=== PATIENT | female | born 1955 | race Caucasian/White ===

== ENCOUNTER 2020-08-04 07:47 | Emergency (ER) | payer BC ==
[2020-08-04] MEDS ORDERED: OXYCODONE-ACETAMINOPHEN 10-325 PO STA (08:06)
[2020-08-04] MEDS ORDERED: OXYCODONE-ACETAMINOPHEN 10-325 ONE (08:08)
--- NOTE | 2020-08-04 08:10 | ERPHSYRPT ---
- History of Present Illness Time Seen by Provider: 08/04/20 07:56 Source: patient Exam Limitations: no limitations Patient Subjective Stated Complaint: shingles to forehead and right eye Triage Nursing Assessment: Pt was brought to the ER by her , right eye swollen shut, small blisters on forehead and eye lid, hypertensive, rates pain 7/10, went to [facility] yesterday and was given Acyclovir, denies having any other place on her Physician History: 65 years old female with history of right retinal surgery in the past presented in the ER with gradual onset right forehead vesiculopapular rash 3 days ago with progressive worsening and involving right upper lid with swelling/vesicles causing difficulty opening since yesterday. Denies any difficulty in vision but what she has at her baseline. She also noticed reddening of right eye conjunctiva. Pain is moderate to severe intensity sharp burning in nature, aggravated with touching and movement of 5 eyelid and no significant relieving factors. She was evaluated by primary care and is on antiviral but her pain is not improving. She tried to get hold of her retinal surgeon Dr. Ro but could not. Denies fever or chills. No difficulty hearing or rash anywhere else. Timing/Duration: day(s) (3), gradual onset, worse Location: right eye Severity: moderate Apparent Injury: no Associated Symptoms: pain, burning, sensitivity to light, redness, eyelid swelling Chemical Exposure: No Allergies/Adverse Reactions: No Known Drug Allergies Allergy (Verified 08/04/20 08:06) Home Medications: Levothyroxine Sodium [Synthroid] 125 mcg PO DAILY 04/25/18 [History] Rosuvastatin Calcium [Crestor] 20 mg PO DAILY 04/25/18 [History] Hx Influenza Vaccination/Date Given: Yes Travel Risk - International Travel Have you traveled outside of the country in past 3 weeks: No - Coronavirus Screening Are you exhibiting any of the following symptoms?: No Close contact with a COVID-19 positive Pt in past 14-21 Days: No - Review of Systems Constitutional: No Symptoms Eyes: Eye Pain, Eye Redness, Itchy, Photophobia, Tearing Ears, Nose, & Throat: No Symptoms, Ear Pain Respiratory: No Symptoms Cardiac: No Symptoms Abdominal/Gastrointestinal: No Symptoms Genitourinary Symptoms: No Symptoms Musculoskeletal: No Symptoms Skin: Rash Neurological: Headache Psychological: No Symptoms Endocrine: No Symptoms Hematologic/Lymphatic: No Symptoms - Past Medical History Pertinent Past Medical History: Yes Neurological History: No Pertinent History ENT History: Cataracts, Other Cardiac History: No Pertinent History Respiratory History: No Pertinent History Endocrine Medical History: Thyroid Cancer Musculoskeletal History: No Pertinent History GI Medical History: No Pertinent History History: No Pertinent History Psycho-Social History: No Pertinent History Female Reproductive Disorders: No Pertinent History Other Medical History: retina detaching, shingles - Past Surgical History Past Surgical History: Yes Neuro Surgical History: No Pertinent History Cardiac: No Pertinent History Respiratory: No Pertinent History Gastrointestinal: No Pertinent History Genitourinary: No Pertinent History Musculoskeletal: No Pertinent History Female Surgical History: Section Other Surgical History: thyroid surgery/radiation tx - Social History Smoking Status: Never smoker Exposure to second hand smoke: No Drug Use: none Patient Lives Alone: No - Female History Hx Now: No - Nursing Vital Signs Nursing Vital Signs: Initial Vital Signs Temperature 98.3 F 08/04/20 07:50 Pulse Rate 83 08/04/20 07:50 Blood Pressure 145/82 08/04/20 07:50 O2 Sat by Pulse Oximetry 98 08/04/20 07:50 Pain Scale Pain Intensity 7 - Physical Exam General Appearance: no apparent distress, alert Vision Acuity Right Eye: 20/70 Vision Acuity Left Eye: 20/50 Eye Exam: right eye: conjunctival hemorrhage, conjunctival inflammation, eyelid inflammation (Diffuse erythema upper lid with vesicular rash.), other (Diffuse erythema right forehead with vesiculopapular rash. Very tender to touch. Difficulty opening right eye because of upper lid swelling. Conjunctival injection), left eye: normal inspection, bilateral eye: PERRL, EOMI Ears, Nose, Throat Exam: normal ENT inspection Neck Exam: normal inspection, non-tender, supple, full range of motion Respiratory Exam: normal breath sounds, lungs clear Cardiovascular Exam: regular rate/rhythm, normal heart sounds Gastrointestinal Exam: soft Neurologic: alert, oriented x 3, cooperative, box stacker II-XII nml as tested, normal mood/affect Skin Exam: normal color SpO2 Interpretation: normal SpO2: 98 O2 Delivery: Room Air Ordered Tests: Active Orders 24 hr Category Date Time Status Visual Acuity STAT Care 08/04/20 08:14 Completed Medication Summary Discontinued Medications Generic Name Dose Route Start Last Admin Trade Name Freq PRN Reason Stop Dose Admin Morphine Sulfate 4 mg 08/04/20 09:28 12 09:38 Morphine Sulfate 4 Mg Inj IM 08/04/20 09:29 4 mg STAT ONE Administration Morphine Sulfate Confirm 08/04/20 09:37 Morphine Sulfate 4 Mg Inj Administered 08/04/20 09:38 Dose 4 mg .ROUTE .STK-MED ONE Oxycodone/Acetaminophen 1 tab 08/04/20 08:06 08/04/20 08:08 Oxycodone-Acetaminophen 10-325 PO 08/04/20 08:07 1 tab STAT STA Administration Oxycodone/Acetaminophen Confirm 08/04/20 08:08 Oxycodone-Acetaminophen 10-325 Administered 08/04/20 08:09 Dose 1 tab .ROUTE .STK-MED ONE - Progress Progress Note: 08/04/20 09:28 64 years old with shingles involving right upper lid with no obvious new visual disturbance per patient. Patient is already on antiviral. She is given pain medications in here, on reevaluation feeling better. I have discussed with ophthalmology Dr. Solomon at [facility], recommended continue with oral antiviral, pain medication, artificial tears, patch and outpatient follow-up with Dr. Ro. Plan discussed with patient understand and agrees with it. Discussed signs symptoms of worsening needing return to ER which she seems understanding. Stable for discharge. Discussed with Dr.: Other Counseled pt/family regarding: diagnosis, need for follow-up - Departure Departure Disposition: Home Clinical Impression: Shingles of eyelid Condition: Stable Critical Care Time: No Referrals: TIMBO STANFORD MD [Primary Care Provider] - (1-2 days for re evaluation) Instructions: Shingles (DC) Additional Instructions: Follow-up with Dr. Ro for reevaluation tomorrow. Apply eye patching and artificial tears. Continue with antiviral medications. Take pain medications as needed. Return to ER immediately for if you notice any visual disturbance/diplopia etc. Prescriptions: Oxycodone HCl/Acetaminophen [Percocet 5-325 mg Tablet] 1 each PO Q6H PRN PRN 3 Days #12 tablet MDD 6 PRN Reason: Pain
[2020-08-04] MEDS ORDERED: MORPHINE SULFATE 4 MG INJ IM ONE (09:28)
[2020-08-04 09:34] VITALS: BP 135/63; PULSE 70
[2020-08-04] MEDS ORDERED: MORPHINE SULFATE 4 MG INJ ONE (09:37)
[2020-08-04 17:08] VITALS: O2SAT 98
== END 2020-08-04 09:56 | disposition home or self-care (01) ==
LOC: ED 07:47
DX: B02.39 Other herpes zoster eye disease (principal)
CPT/HCPCS: 96372; 99284; J2270; A9270-GY